=== PATIENT | female | born 1960 | race Caucasian/White ===

== ENCOUNTER → 2016-12-25 | Outpatient (CLI) | payer BC ==
[~2016-12-25] MED LIST: CHOL100010 PO; CYAN10005 PO; TRIAPOW43 PO; VERA240C2 PO; [UNRECOGNIZED DRUG - CODE] PO
--- NOTE | 2016-12-25 13:34 | MAMMOGRAPHY REPORT ---
BILATERAL DIGITAL SCREENING MAMMOGRAM TOMOSYNTHESIS WITH CAD: 12/25/2016 CLINICAL HISTORY: Routine screening. Patient has no complaints. TECHNIQUE: Bilateral breast tomosynthesis in addition to standard 2D mammography was performed. Curr ent study was also evaluated with a Computer Aided Detection (CAD) system. COMPARISON: Comparison is made to exams dated: 12/22/2015 mammogram, 12/21/2012 mammogram, 02/22/2014 mammogram, 12/28/2012 mammogram, 12/18/2011 mammogram, and 12/17/2010 mammogram - [facility]. BREAST COMPOSITION: There are scattered areas of fibroglandular density in both breasts. FINDINGS: There is a stable ribbon shaped metallic biopsy marker in the 12:00 far posterior left richard ast. A stable focal asymmetry in the upper outer middle one third of the left breast is unchanged m ammographically dating back to at least 12/11/2007, therefore likely benign. There are a few puncta te benign-appearing microcalcifications in the anterior right breast. No suspicious mass, senior solutions architect ural distortion or cluster of microcalcifications is seen. IMPRESSION: ACR BI-RADS CATEGORY 1: NEGATIVE There is no mammographic evidence of malignancy. A 1 year screening mammogram is recommended. The p atient will receive written notification of the results. Approximately 10% of breast cancers are not detected with mammography. A negative mammographic repor t should not delay biopsy if a clinically suggestive mass is present. Elenita Hanson M.D. ay/:12/25/2016 12:53:30 Patient Assistant: Marisela HELLER(R)(M), [facility] letter sent: Normal 1/2 BI-RADS Code: ACR BI-RADS Category 1: Negative
== END | disposition home or self-care (01) ==
LOC: C.MAMM 09:59
PROVIDERS: ATTEND Family Medicine
DX: Z12.31 Encounter for screening mammogram for malignant neoplasm of breast (principal)